=== PATIENT | female | born 1945 | race Caucasian/White ===

== ENCOUNTER 2019-01-02 10:23 | Emergency (ER) | payer SELFPAY ==
[~2019-01-02] VITALS: Ht 160 cm; Wt 77.0 kg
[2019-01-02 10:27] VITALS: Ht 160 cm; Wt 77.0 kg
[2019-01-02] MEDS ORDERED: ONDANSETRON 4 MG INJ IV STA (11:03)
[2019-01-02] MEDS ORDERED: morphine 2 MG INJ IV STA (11:03)
--- NOTE | 2019-01-02 11:10 | ERD ---
ER Documentation Chief Complaint Chief Complaint pt is eladio family with bilateral foot swelling x 4 days HPI This is a 73-year-old female Tajik speaking who is visiting her family in the [place]. The patient arrived from [facility] 1 month ago. She indicates that for the past 4 days she has been having significant pain and swelling in both feet. She states the pain is more prominent on the right lower extremity and right foot. She denies any trauma. She said no shortness of breath at rest or exertion. She denies any fever shaking or chills. She states she has not undergone a significant amount of walking but the pain is exacerbated with ambulation. The pain is 8 out of 10 in intensity. She has been taking Motrin which improves the pain in the both of her feet but once the medication wears off the pain returns. The pain in the right foot is 8 out of 10 in intensity. States the pain radiates to the right calf. She has no chest pain. She denies a headache. ROS All systems reviewed and are negative except as per history of present illness. Medications Home Meds No Active Prescriptions or Reported Meds Allergies Allergies: Coded Allergies: No Known Allergy (Unverified , 01/02/19) PMhx/Soc Medical and Surgical Hx: pt denies Surgical Hx History of Surgery: No Hx Neurological Disorder: No Hx Respiratory Disorders: No Hx Cardiac Disorders: Yes (HTN) Hx Psychiatric Problems: No Hx Miscellaneous Medical Probl: No Hx Alcohol Use: No Hx Substance Use: No Hx Tobacco Use: No Smoking Status: Never smoker Physical Exam Vitals Vital Signs Date Temp Pulse Resp B/P (MAP) Pulse Ox O2 O2 Flow FiO2 Time Delivery Rate 01/02/19 98.8 85 18 187/80 98 10:27 (115) Physical Exam Constitutional:Well-developed. Well-nourished. HEENT:Normocephalic. Atraumatic.Pupils were equal round reactive to light. Moist mucous membranes.No tonsillar exudates. Neck: No nuchal rigidity. No lymphadenopathy. No posterior cervical spine tenderness or step-offs. Respiratory: Not using accessory muscles of respiration.Lungs were clear to auscultation bilaterally. No rhonchi. No rales. No wheezing. Cardiovascular: Regular rate regular rhythm.No murmurs. No rubs were appreciated.S1, S2 normal. Distal pulses are palpable 2+ bilaterally. GI: Abdomen was soft. Nontender. Non Distended. No pulsatile abdominal masses or bruits. No rebound. No guarding. Bowel sounds were present and normal. Muscle skeletal: Full range of motion of both the upper and lower extremities bilaterally.Normal muscle tone.right calf tenderness. Asymmetrical swelling of less than 1 cm of the right calf compared to the left. Tenderness over the base of the fifth right metatarsal. No tenderness of the medial or lateral right malleolus. No midfoot tenderness on the right. Patient was able to ambulate more than forceps in the emergency department but this exacerbated pain. Bilateral lower extremities were not pale or cool to the touch. Skin: No petechia, no purpura. No lesions on the palms or the soles of the feet. No maculopapular rash. NEURO: Patient was alert, awake, orientated x3.No facial droop. Gait observed and normal with no ataxia.Speech had regular rate and rhythm. No focal neurological deficits. Result Diagram: 01/02/19 1115 01/02/19 1115 Results 24 hrs Laboratory Tests Test 01/02/19 11:15 White Blood Count 9.1 10^3/ul Red Blood Count 4.58 10^6/ul Hemoglobin 11.9 g/dl Hematocrit 38.3 % Mean Corpuscular Volume 83.6 fl Mean Corpuscular Hemoglobin 26.0 pg Mean Corpuscular Hemoglobin Concent 31.1 g/dl Red Cell Distribution Width 13.7 % Platelet Count 324 10^3/UL Mean Platelet Volume 10.2 fl Immature Granulocytes % 0.300 % Neutrophils % 67.5 % Lymphocytes % 24.4 % Monocytes % 7.0 % Eosinophils % 0.5 % Basophils % 0.3 % Nucleated Red Blood Cells % 0.0 /100WBC Immature Granulocytes # 0.030 10^3/ul Neutrophils # 6.2 10^3/ul Lymphocytes # 2.2 10^3/ul Monocytes # 0.6 10^3/ul Eosinophils # 0.1 10^3/ul Basophils # 0.0 10^3/ul Nucleated Red Blood Cells # 0.0 10^3/ul Prothrombin Time 12.6 Sec Prothrombin Time Ratio 1.0 INR International Normalized Ratio 0.93 Activated Partial Thromboplast Time 29.3 Sec D-Dimer 2483.18 ng/ml D-Dimer Comment Sodium Level 142 mmol/L Potassium Level 4.2 mmol/L Chloride Level 104 mmol/L Carbon Dioxide Level 29 mmol/L Anion Gap 9 Blood Urea Nitrogen 10 mg/dl Creatinine 0.67 mg/dl Est Glomerular Filtrat Rate mL/min mL/min Glucose Level 115 mg/dl Uric Acid 4.3 mg/dl Calcium Level 9.3 mg/dl Total Bilirubin 0.5 mg/dl Direct Bilirubin 0.00 mg/dl Indirect Bilirubin 0.5 mg/dl Aspartate Amino Transf (AST/SGOT) 21 IU/L Alanine Aminotransferase (ALT/SGPT) 26 IU/L Alkaline Phosphatase 87 IU/L Creatine Kinase 65 IU/L Creatine Kinase Index 1.4 Creatinine Kinase MB (Mass) 0.93 ng/ml Troponin I < 0.012 ng/ml B-Type Natriuretic Peptide 325 PG/ML Total Protein 7.2 g/dl Albumin 4.0 g/dl Globulin 3.20 g/dl Albumin/Globulin Ratio 1.25 Current Medications Medications Dose Sig/Danyelle Start Time Status Last (Trade) Ordered Route PRN Stop Time Admin Dose Reason Admin Morphine 2 mg ONCE STAT 01/02/19 DC Sulfate IV 11:03 01/02/19 (morphine) 11:07 Ondansetron 4 mg ONCE STAT 01/02/19 DC HCl (Zofran IV 11:03 01/02/19 Inj) 11:07 Sodium 100 ml @ ud STK-MED 01/02/19 DC Chloride ONCE .ROUTE 14:08 01/02/19 14:09 Iohexol 100 ml @ STK-MED 01/02/19 DC ONCE .ROUTE 14:08 01/02/19 14:09 Procedures/MDM This patient presented to the emergency department with bilateral peripheral edema of her lower extremities. She also complains of pain of her right lower extremity. The patient recently had a long flight from [facility]. The patient is a high pretest probability according to Wells criteria for pulmonary embolism. The patient's d-dimer was elevated. She underwent a CT scan which showed no evidence of pulmonary embolism. Due to the findings on the physical exam I did obtain venous duplex ultrasound of lower extremities there is no evidence of DVT. There is no evidence of arterial insufficiency. Radiographic image of the right foot showed no evidence of a fracture. I indicated the patient did not have an exact etiology into the pain of her lower extremity but it could be muscle skeletal in origin versus plantar fasciitis. The patient received intravenous morphine and Zofran in the emergency department with improvement of her pain. There was no signs of atypical myocardial ischemia. She will be sent home with [place] for further analgesia control if needed. She was also given Colace he has to prevent opiate-induced constipation. 12 Lead EKG tracing ordered and reviewed by myself showed: Normal sinus rhythm of 73 bpm and no arrhythmia. TN interval normal. QRS duration normal. No ST segment elevation No ST segment depression. No changes consistent with acute ischemia. The patient was discharged home in fair condition. They were instructed to re turn to the emergency department at any time if there was any worsening of their condition. The patient stated they would follow up with their PCP in the next 24-48 hours to initiate a suitable medication regimen under the care of their PCP as well as to allow their PCP to monitor any drug reactions. The patient was discharged home with prescriptions after they gave informed consent to the new medication. They were also fully informed by myself on the adverse effects and adverse drug interactions in order to provide adequate safeguards to prevent possible adverse reactions to medications. Departure Diagnosis: Primary Impression: Peripheral edema Additional Impression: Right foot pain Condition: NUZHAT Jackson MD Jan 02, 2019 11:09
[2019-01-02] MEDS ORDERED: IOHEXOL 100 ML ONE (14:08)
[2019-01-02] MEDS ORDERED: SOD CHLORIDE 0.9% 100 ML ONE (14:08)
[2019-01-02] MEDS ORDERED: NAPR-985 PO (14:11)
[2019-01-02 15:16] VITALS: BP 151/71; PULSE 86; RESP 18
== END 2019-01-02 15:20 | disposition home or self-care (01) ==
LOC: E/R 10:23
DX: M79.671 Pain in right foot (principal); I10 Essential (primary) hypertension
CPT/HCPCS: 71045; 71275; 73630; 80053; 82550; 82553; 83880; 84484; 84560; 85025; 85378; 85610; 85730; 93005; 93923; 93970; 99285; Q9967